=== PATIENT | male | born 1965 | race African-American/Black ===

== ENCOUNTER 2018-04-05 16:38 | Emergency (ER) | payer MEDICAID ==
[~2018-04-05] VITALS: Ht 175.3 cm; Wt 86.4 kg
[~2018-04-05 16:38] MED LIST: DIVA-78 PO; RISP1 PO
[2018-04-05 16:41] VITALS: BP 118/85
[2018-04-05] MEDS ORDERED: AZITHROMYCIN 250 MG TABLET PO ONE (19:45)
[2018-04-05] MEDS ORDERED: IPRATROPIUM BROMIDE 0.5 MG/2.5 ML NEB SOLUTION NEB ONE (19:45)
[2018-04-05] MEDS ORDERED: ACETAMINOPHEN 500 MG TABLET PO ONE (19:45)
[2018-04-05] MEDS ORDERED: ALBUTEROL SULFATE 5 MG/ML 20 ML NEB SOLN [BULK] NEB ONE ×2 (19:45→20:30)
[2018-04-05] MEDS ORDERED: PredniSONE 20 MG TABLET PO ONE (19:45)
[2018-04-05] MEDS ORDERED: ALBUTEROL SULFATE 2.5 MG/0.5 ML NEB SOLUTION NEB ONE ×2 (20:15→21:30)
== END 2018-04-05 21:36 | disposition home or self-care (01) ==
LOC: EMS 16:38
DX: J45.901 Unspecified asthma with (acute) exacerbation (principal); F32.9 Major depressive disorder, single episode, unspecified; Z87.891 Personal history of nicotine dependence; Z88.0 Allergy status to penicillin
CPT/HCPCS: 71046; 94640; 99284; J7512; J7613

== ENCOUNTER 2022-07-06 16:22 | Emergency (ER) | payer MEDICAID ==
[~2022-07-06] VITALS: Ht 177.8 cm; Wt 97.0 kg
[2022-07-06 17:04] LABS: BASOPHILS % (AUTO) 0.6 % (0.0-2.0); EOSINOPHILS % (AUTO) 2.1 % (1.0-6.0); HEMOGLOBIN 12.6 g/dL (13.5-17.5); LYMPHOCYTES # (AUTO) 2.1 K/uL (1.0-4.8); LYMPHOCYTES % (AUTO) 31.4 % (22.0-44.0); MEAN CORPUSCULAR HGB CONC 33.1 G/dL (31.0-37.0); MEAN CORPUSCULAR VOLUME 94 fL (80-100); MONOCYTES # (AUTO) 0.4 K/uL (0.1-1.0); MONOCYTES % (AUTO) 5.7 % (2.0-9.0); NEUTROPHILS % (AUTO) 60.2 % (40.0-70.0); PLATELET COUNT (AUTO) 268 K/uL (150-450); RED BLOOD CELL COUNT(AUTO) 4.06 MIL/uL (4.50-5.90); RED CELL DISTRIBUTION WIDTH 13.2 % (11.5-14.5)
[2022-07-06 17:18] LABS: ANION GAP 7 mmol/L (8-16); CALCIUM, TOTAL 9.4 mg/dL (8.8-10.5); CARBON DIOXIDE 29 mmol/L (22-29); CHLORIDE 103 mmol/L (98-107); CREATININE 1.41 mg/dL (0.60-1.30); GLUCOSE,RANDOM 131 mg/dL (70-110); POTASSIUM 3.6 mmol/L (3.5-5.1); SODIUM SERUM 139 mmol/L (136-145); UREA NITROGEN, BLOOD 17 mg/dL (7-18)
[2022-07-06 17:19] LABS: GLOMERULAR FILTR. RATE CALC > 60 mL/min (>60)
[2022-07-06 17:35] LABS: B-TYPE NATRIURETIC PEPTIDE 6 pg/mL (0-100)
[2022-07-06 17:48] LABS: ALANINE AMINOTRANSFERASE 33 U/L (12-78); ALBUMIN 3.7 g/dL (3.4-5.0); ALKALINE PHOSPHATASE 43 U/L (46-116); ASPARTATE AMINOTRANSFERASE 17 U/L (15-37); BILIRUBIN,TOTAL 0.2 mg/dL (0.1-1.0); CREATINE KINASE, TOTAL ONLY 113 U/L (39-308); TOTAL PROTEIN, SERUM 7.3 g/dL (6.4-8.2)
[2022-07-06 18:14] VITALS: BP 145/79
== END 2022-07-06 18:40 | disposition home or self-care (01) ==
LOC: EMS 16:22
DX: R55 Syncope and collapse (principal); J45.909 Unspecified asthma, uncomplicated; F32.A Depression, unspecified; Z87.891 Personal history of nicotine dependence
CPT/HCPCS: 71045; 80053; 82550; 82962; 83880; 84484; 85025; 93005; 99285; 36415-L1; 36415-TC